=== PATIENT | male | born 1955 | race Caucasian/White ===

== ENCOUNTER 2021-02-06 15:15 | Emergency (ER) | payer MEDICARE, OTHER ==
[~2021-02-06] VITALS: Ht 182.9 cm; Wt 106.0 kg
--- NOTE | 2021-02-06 15:50 | EKG ---
[address] [address] Test Date: 2021-02-06 Test Time: 15:25:39 Pat Name: ALLISON DEE Department: Room: Gender: M Advertising Consultant: : 1955 Requested By: CHRISTOPHER NARANJO Order Number: [id number] Reading MD: Measurements Intervals [place] Rate: 75 P: 0 OR: 130 QRS: -26 QRSD: 92 T: -1 QT: 394 QTc: 443 Interpretive Statements SINUS RHYTHM LEFTWARD AXIS OTHERWISE NORMAL ECG RI6.02 No previous ECG available for comparison
--- NOTE | 2021-02-06 15:58 | PHYS DOC ---
Past History Additional Past Medical Histor: BPV (CHRISTOPHER NARANJO APRN) Past Surgical History: Other Additional Past Surgical Histo: Hernia repair (CHRISTOPHER NARANJO APRN) Alcohol Use: None (CHRISTOPHER NARANJO APRN) General Adult EDM: Chief Complaint: CHEST PAIN HPI: HPI: Patient is a 65-year-old male who presents to the ER today for left-sided chest pain that radiates into his shoulder and neck notes started this morning. He reports that last night he had some diaphoresis and dizziness but attributed that to his BPV, he did not have chest pain at the time. He describes the chest pain as a stabbing pain. He rates it 5 out of 10. No alleviating or aggravating factors. Patient is reporting intermittent shortness of breath, nausea, and has a chronic cough. Patient has a history of diabetes. He has a family history of heart disease. He does not smoke. Patient's vital signs are stable and he is in no acute distress. (CHRISTOPHER NARANJO APRN) Review of Systems: Review of Systems: 14 body systems of the review of systems have been reviewed. See HPI for pertinent positive and negative responses, otherwise all other systems are negat kaushik, nonpertinent or noncontributory (CHRISTOPHER NARANJO APRN) Physical Exam: PE: Constitutional: Well developed, well nourished, no acute distress, non-toxic appearance. [] HENT: Normocephalic, atraumatic, bilateral external ears normal, oropharynx moist, no oral exudates, nose normal. [] Eyes: PERRL, EOMI, conjunctiva normal, no discharge. [] Neck: Normal range of motion, no stridor Cardiovascular:Heart rate regular rhythm, no murmur, chest pain not reproducible [] Lungs & Thorax: Bilateral breath sounds clear to auscultation [] Abdomen: Bowel sounds normal, soft, no tenderness, no masses, no pulsatile masses. [] Skin: Warm, dry, no erythema, no rash. [] Back: Normal range of motion Extremities: No tenderness, no cyanosis, no clubbing, ROM intact, no edema. [] Neurologic: Alert and oriented X 3, normal motor function, normal sensory function, no focal deficits noted. [] Psychologic: Affect normal, judgement normal, mood normal. [] (CHRITSOPHER NARANJO APRN) Current Patient Data: Labs: Laboratory Tests Test 02/06/21 15:19 02/06/21 15:45 02/06/21 18:53 Sodium Level 139 mmol/L Potassium Level 4.2 mmol/L Chloride Level 103 mmol/L Carbon Dioxide Level 26 mmol/L Anion Gap 10 Blood Urea Nitrogen 18 mg/dL Creatinine 1.1 mg/dL Estimated GFR (Cockcroft-Gault) 67.0 BUN/Creatinine Ratio 16 Glucose Level 289 mg/dL Calcium Level 9.0 mg/dL Total Bilirubin 0.4 mg/dL Aspartate Amino Transf (AST/SGOT) 14 U/L Alanine Aminotransferase (ALT/SGPT) 27 U/L Alkaline Phosphatase 83 U/L Total Protein 6.6 g/dL Albumin 3.7 g/dL Albumin/Globulin Ratio 1.3 White Blood Count 7.4 x10^3/uL Red Blood Count 4.80 x10^6/uL Hemoglobin 14.1 g/dL Hematocrit 41.3 % Mean Corpuscular Volume 86 fL Mean Corpuscular Hemoglobin 29 pg Mean Corpuscular Hemoglobin Concent 34 g/dL Red Cell Distribution Width 13.3 % Platelet Count 163 x10^3/uL Neutrophils (%) (Auto) 72 % Lymphocytes (%) (Auto) 19 % Monocytes (%) (Auto) 8 % Eosinophils (%) (Auto) 2 % Basophils (%) (Auto) 1 % Neutrophils # (Auto) 5.3 x10^3uL Lymphocytes # (Auto) 1.4 x10^3/uL Monocytes # (Auto) 0.6 x10^3/uL Eosinophils # (Auto) 0.1 x10^3/uL Basophils # (Auto) 0.0 x10^3/uL Troponin I Quantitative < 0.017 ng/mL < 0.017 ng/mL Current Medications Medications (Trade) Dose Ordered Sig/Meagan Route PRN Reason Start Time Stop Time Status Last Admin Dose Admin Aspirin (Aspirin Chewable) 324 mg 1X ONCE PO 02/06/21 16:00 02/06/21 16:04 DC 02/06/21 16:52 Vital Signs: Vital Signs Date Time Temp Pulse Resp B/P (MAP) Pulse Ox O2 Delivery O2 Flow Rate FiO2 02/06/21 15:24 98.4 77 24 133/76 (95) 95 (CHRISTOPHER NARANJO APRN) EKG: EKG: EKG performed by ER staff at 1525 shows sinus rhythm, no STEMI or ischemic changes read by Dr. Smith at 1536. [] Repeat EKG performed at 1558 shows sinus rhythm, no change from previous EKG read by Dr. Smith 1558. (CHRISTOPHER NARANJO APRN) Radiology/Procedures: Radiology/Procedures: PROCEDURE: CHEST AP ONLY AP chest. HISTORY: Chest pain AP view was taken of the chest. Lungs are clear. Heart is normal in size. There is no pleural effusion. IMPRESSION: 1. No acute chest disease. Electronically signed by: Mesfin Smith MD (02/06/2021 4:48 PM) [id number] DICTATED AND SIGNED BY: MESFIN SMITH MD DATE: 02/06/211646 CC: EMERGENCY,DEPARTMENT; CHRISTOPHER NARANJO APRN; DUYEN DASH MD ~MTH0 0 [] (CHRISTOPHER NARANJO APRN) Heart Score: C/O Chest Pain: Yes HEART Score for Chest Pain: HEART Score for Chest Pain Response (Comments) Value History Slighlty/Non-Suspicious (strenuous exercise and heavy lifting yesterday) 0 ECG Normal 0 Age > 65 2 Risk Factors 1 or 2 Risk Factors (Diabetes and family history of heart disease) 1 Troponin < Normal Limit 0 Total 3 Risk Factors: Risk Factors: DM, Current or recent (<one month) smoker, HTN, HLP, family history of CAD, obesity. Risk Scores: Score 0 - 3: 2.5% MACE over next 6 weeks - Discharge Home Score 4 - 6: 20.3% MACE over next 6 weeks - Admit for Clinical Observation Score 7 - 10: 72.7% MACE over next 6 weeks - Early Invasive Strategies (CHRISTOPHER NARANJO APRN) Course & Med Decision Making: Course & Med Decision Making Pertinent Labs and Imaging studies reviewed. (See chart for details) Patient is a 65-year-old male being seen in the ER for left-sided chest pain that radiates to his shoulder that started this am at 0700. Work-up in the ER consisted of blood work, EKG, chest x-ray. Lab work is unremarkable. EKG is negative for any acute findings. Chest x-ray negative for any acute findings. Due to patient's heart score of 4 I would like a repeat troponin in 3 hours. Patient states that he is feeling much better. He states that he does not want to be admitted overnight. Patient divulged that he had been clearing brush last night prior to his symptoms starting and he states that he was pushing a mower for prolonged period and thinks that that may have caused his chest pain. Patient's repeat troponin after 3 hours was negative. I discussed possible admission with patient due to his history. Patient states that he would like to go home. Patient has a follow-up appointment with his primary care provider on the of this month. I discussed following up with his primary care provider as he may need further testing. I discussed with patient all findings and diagnostic testing as well as the need to follow-up with PCP for further evaluation and treatment or return to the ER if any new or worsening symptoms. Strict return precautions were also discussed at length. Patient voiced understanding and agreement with the plan. Patient is hemodynamically stable at the time of disposition. (CHRISTOPHER NARANJO APRN) Course & Med Decision Making Did not see or evaluate patient. Did not discuss patient with TAVERN CAR ATTENDANT. Agree with TAVERN CAR ATTENDANT's work-up and disposition per note. (JENNIE KINCAID MD) Dragon Disclaimer: Dragon Disclaimer: This electronic medical record was generated, in whole or in part, using a voice recognition dictation system. (CHRISTOPHER NARANJO APRN) Departure Departure: Impression: Primary Impression: Chest pain Qualified Codes: R07.9 - Chest pain, unspecified Disposition: HOME / SELF CARE / HOMELESS Condition: GOOD Referrals: DUYEN DASH MD (PCP) Patient Instructions: Chest Pain (Nonspecific) Additional Instructions: You were seen in the ER today for chest pain. Your physical exam was reassuring. Your vital signs were stable. As we discussed, at this time you are not having acute coronary syndrome. We discussed possible admission for cardiac observation but you declined. Please follow-up with your primary care provider on Tuesday regarding your ER visit. Rest and increase your fluids. If you develop chest pain, shortness of breath, lightheadedness, diaphoresis, intractable nausea or vomiting, high fevers refractory to treatment please return to the ER immediately. EMERGENCY DEPARTMENT GENERAL DISCHARGE INSTRUCTIONS Thank you for coming to [facility] (ED) today and trusting us with you care. We trust that you had a positivie experience in our Emergency Department. If you wish to speak to the department management, you may call the director at [phone]. YOUR FOLLOW UP INSTRUCTIONS ARE FOLLOWS: 1. Do you have a private Doctor? If you do not have a private doctor, please ask for a resource list of physicians or clinics that may be able to assist you with follow up care. 2. The Emergency Physician has interpreted your x-rays. The X-Ray specialist will also review them. If there is a change in the findings, you will be notified in 48 hours when at all possible. 3. A lab test or culture has been done, your results will be reviewed and you will be notified if you need a change in treatment. ADDITIONAL INSTRUCTIONS AND INFORMATION: 1. Your care today has been supervised by a physician who is specially trained in emergency care. Many problems require more than one evaluation for a complete diagnosis and treatment. We recommend that you schedule your follow up appointment as recommended to ensure complete treatment of you illness or injury. If you are unable to obtain follow up care and continue to have a problem, or if your condition worsens, we recommend that you return to the ED. 2. We are not able to safely determine your condition over the phone nor are we able to give sound medical advice over the phone. For these safety reasons, if you call for medical advice we will ask you to come to the ED for further evaluation. 3. If you have any questions regarding these discharge instructions please call the ED at [phone]. SAFETY INFORMATION: In the interest of safety, wellness, and injury prevention; we encourage you to wear your sealbelt, if you smoke; quite smoking, and we encourage family to use a protective helmet for bicycling and other sporting events that present an increased risk for head injury. IF YOUR SYMPTOMS WORSEN OR NEW SYMPTOMS DEVELOP, OR YOU HAVE CONCERNS ABOUT YOUR CONDITION; OR IF YOUR CONDITION WORSENS WHILE YOU ARE WAITING FOR YOUR FOLLOW UP APPOINTMENT; EITHER CONTACT YOUR PRIMARY CARE DOCTOR, THE PHYSICIAN WHOSE NAME AND NUMBER YOU WERE GIVEN, OR RETURN TO THE ED IMMEDIATELY. CHRISTOPHER NARANJO APRN Feb 06, 2021 15:58 JENNIE KINCAID MD Feb 06, 2021 20:28
[2021-02-06] MEDS ORDERED: ASPIRIN CHEWABLE 81 MG TABLET. PO ONE (16:00)
--- NOTE | 2021-02-06 16:07 | EKG ---
[address] [address] Test Date: 2021-02-06 Test Time: 15:58:16 Pat Name: ALLISON DEE Department: Room: Gender: M Analysis Engineer: : 1955 Requested By: CHRISTOPHER NARANJO Order Number: [id number] Reading MD: Measurements Intervals [place] Rate: 76 P: 180 [place]: 130 QRS: -24 QRSD: 92 T: -3 QT: 386 QTc: 439 Interpretive Statements SINUS RHYTHM LEFTWARD AXIS OTHERWISE NORMAL ECG RI6.02 No previous ECG available for comparison
[2021-02-06 16:12] LABS: BASO % 1 % (0-3); EOS # 0.1 x10^3/uL (0.0-0.7); EOS % 2 % (0-3); HEMATOCRIT 41.3 % (39.0-53.0); HEMOGLOBIN 14.1 g/dL (13.0-17.5); LYMPH # 1.4 x10^3/uL (1.0-4.8); LYMPH % 19 % (24-48); MEAN CORPUSCULAR HEMOGLOBIN 29 pg (25-35); MEAN CORPUSCULAR HGB CONC 34 g/dL (31-37); MEAN CORPUSCULAR VOLUME 86 fL (79-100); MONO # 0.6 x10^3/uL (0.0-1.1); MONO % 8 % (0-9); NEUT # 5.3 x10^3uL (1.8-7.7); NEUT % 72 % (31-73); PLATELET COUNT 163 x10^3/uL (140-400); RED CELL DISTRIBUTION WIDTH 13.3 % (11.5-14.5); WHITE BLOOD COUNT 7.4 x10^3/uL (4.0-11.0)
[2021-02-06 16:21] LABS: CREATININE 1.1 mg/dL (0.7-1.3); POTASSIUM 4.2 mmol/L (3.5-5.1)
[2021-02-06 16:27] LABS: ALBUMIN 3.7 g/dL (3.4-5.0); ALBUMIN/GLOBULIN RATIO 1.3 (1.0-1.7); TOTAL BILIRUBIN 0.4 mg/dL (0.2-1.0); TOTAL PROTEIN 6.6 g/dL (6.4-8.2)
--- NOTE | 2021-02-06 16:50 | RAD ---
AP chest. HISTORY: Chest pain AP view was taken of the chest. Lungs are clear. Heart is normal in size. There is no pleural effusio n. IMPRESSION: 1. No acute chest disease. Electronically signed by: Mesfin Smith MD (02/06/2021 4:48 PM) [id number]
[2021-02-06 19:54] VITALS: BP 112/69
== END 2021-02-06 19:55 | disposition home or self-care (01) ==
LOC: ER 15:15
DX: R07.89 Other chest pain (principal)
CPT/HCPCS: 36415; 71045; 80053; 84484; 85025; 93005; 99285

== ENCOUNTER → 2021-02-26 | Outpatient (CLI) | payer MEDICARE, OTHER ==
[2021-02-06 19:54] VITALS: BP 112/69
--- NOTE | 2021-02-26 10:10 | RAD ---
EXAM: 3 Views Left Shoulder DATE: 02/26/2021 9:15 AM INDICATION: Reason: Left Shoulder Pain / Spl. Instructions: / History: COMPARISON: No Prior FINDINGS: There is no evidence for acute fracture or dislocation. AC joint is congruent. Small a.c. and glenohu meral joint osteophytes are seen. Humeral head is not high riding. Patchy opacities left greater than right lung base. IMPRESSION: 1. No acute fracture or dislocation. 2. Patchy bibasilar opacities likely atelectasis or developing consolidation. Electronically signed by: Darell Sosa MD (02/26/2021 10:07 AM) [id number]
== END ==
LOC: RAD 09:03
PROVIDERS: ATTEND Orthopaedic Surgery
DX: M25.712 Osteophyte, left shoulder (principal); M25.512 Pain in left shoulder
CPT/HCPCS: 73030

== ENCOUNTER 2021-09-28 08:38 | Emergency (ER) | payer MEDICARE, OTHER ==
[~2021-09-28] VITALS: Ht 182.9 cm; Wt 106.0 kg
--- NOTE | 2021-09-28 09:24 | PHYS DOC ---
Past History Additional Past Medical Histor: BPV Past Surgical History: Other Additional Past Surgical Histo: Hernia repair Alcohol Use: None General Adult EDM: Chief Complaint: CHEST PAIN HPI: HPI: Patient is a 66-year-old male coming in for 1 week of lightheadedness that is worse with standing up or sitting up, dry cough, and chest heaviness. Patient states that he has had the chest heaviness for a couple weeks constantly but it has gone away this morning, and is complaining of crampy lateral left pain is worse with palpation and taking a deep breath. Patient also states that he had a sharp pain in his left lateral chest around his ribs. That pain is not present currently. Patient also reports fatigue and decreased energy for the past month. Review of Systems: Review of Systems: All other systems within normal limits except for as noted in the HPI Allergies: Allergies: Allergies Coded Allergies Type Severity Reaction Last Updated Verified No Known Drug Allergies 02/06/21 No Physical Exam: PE: Constitutional: Well developed, well nourished, no acute distress, non-toxic ap pearance. [] HENT: Normocephalic, atraumatic, bilateral external ears normal, nose normal. [] Eyes: PERRLA, conjunctiva normal, no discharge. [] Neck: No rigidity, supple, no stridor. [] Cardiovascular: Regular rate and rhythm, brisk cap refill [] Lungs & Thorax: Non labored symmetric respirations, no tachypnea or respiratory distress [] Abdomen: Soft, nondistended. Skin: Warm, dry, no erythema, no rash. [] Back: Unremarkable Extremities: No deformities, range of motion grossly intact, no lower extremity edema [] Neurologic: Alert and oriented X 3, no focal deficits noted. [] Psychologic: Affect normal, judgement normal, mood normal. [] Current Patient Data: Vital Signs: Vital Signs Date Time Temp Pulse Resp B/P (MAP) Pulse Ox O2 Delivery O2 Flow Rate FiO2 09/28/21 08:48 83 22 134/78 (96) Room Air EKG: EKG: Sinus rhythm, heart rate 83 bpm, left axis deviation, no STEMI [] Radiology/Procedures: Radiology/Procedures: [address] [address] IMAGING REPORT Signed PATIENT: ALLISON DEE ACCOUNT: [id number] : 1955 LOCATION: ER AGE: 66 SEX: M EXAM STATUS: REG ER ORD. PHYSICIAN: JOSE JOHNSON MD REASON: chest pain PROCEDURE: PORTABLE CHEST 1V EXAM: CHEST 1 VIEW History: Chest pain COMPARISON: None available. TECHNIQUE: Single portable radiograph of the chest FINDINGS: The cardiac silhouette is unremarkable. The lungs are clear bilaterally. The costophrenic sulci are clear and well demarcated. IMPRESSION: No radiographic evidence of an acute cardiopulmonary process. Electronically signed by: Isidro Rudd MD (09/28/2021 9:23 AM) [id number] DICTATED AND SIGNED BY: ISIDRO RUDD MD DATE: 09/28/21920 CC: JOSE JOHNSON MD; DUYEN DASH MD ~ [] Heart Score: C/O Chest Pain: Yes HEART Score for Chest Pain: HEART Score for Chest Pain Response (Comments) Value History Slighlty/Non-Suspicious 0 ECG Normal 0 Age > 65 2 Risk Factors 1 or 2 Risk Factors 1 Troponin < Normal Limit 0 Total 3 Risk Factors: Risk Factors: DM, Current or recent (<one month) smoker, HTN, HLP, family history of CAD, obesity. Risk Scores: Score 0 - 3: 2.5% MACE over next 6 weeks - Discharge Home Score 4 - 6: 20.3% MACE over next 6 weeks - Admit for Clinical Observation Score 7 - 10: 72.7% MACE over next 6 weeks - Early Invasive Strategies Course & Med Decision Making: Course & Med Decision Making Pertinent Labs and Imaging studies reviewed. (See chart for details) Work-up unremarkable. Patient with vague complaints but unremarkable work-up. Advised to follow-up with primary care for further outpatient evaluation. No emergent pathology identified in the emergency department. [] Dragon Disclaimer: Dragon Disclaimer: This electronic medical record was generated, in whole or in part, using a voice recognition dictation system. Departure Departure: Impression: Primary Impression: Chest pain Disposition: HOME / SELF CARE / HOMELESS Condition: STABLE Referrals: DUYEN DASH MD (PCP) Patient Instructions: Chest Contusion, [id number] JOSE JOHNSON MD September 28, 2021 09:24
[2021-09-28 09:35] LABS: BASO % 0 % (0-3); EOS # 0.1 x10^3/uL (0.0-0.7); EOS % 2 % (0-3); HEMATOCRIT 45.3 % (39.0-53.0); HEMOGLOBIN 15.3 g/dL (13.0-17.5); LYMPH # 1.6 x10^3/uL (1.0-4.8); LYMPH % 23 % (24-48); MEAN CORPUSCULAR HEMOGLOBIN 29 pg (25-35); MEAN CORPUSCULAR HGB CONC 34 g/dL (31-37); MEAN CORPUSCULAR VOLUME 86 fL (79-100); MONO # 0.5 x10^3/uL (0.0-1.1); MONO % 7 % (0-9); NEUT # 4.7 x10^3uL (1.8-7.7); NEUT % 68 % (31-73); PLATELET COUNT 167 x10^3/uL (140-400); RED BLOOD COUNT 5.25 x10^6/uL (4.30-5.70); RED CELL DISTRIBUTION WIDTH 13.5 % (11.5-14.5)
[2021-09-28 09:36] LABS: CREATININE 1.1 mg/dL (0.7-1.3); GFR 66.8; POTASSIUM 4.2 mmol/L (3.5-5.1)
[2021-09-28 09:49] LABS: ALBUMIN 3.8 g/dL (3.4-5.0); ALBUMIN/GLOBULIN RATIO 1.3 (1.0-1.7); MAGNESIUM 2.1 mg/dL (1.8-2.4); PHOSPHORUS 3.6 mg/dL (2.6-4.7); TOTAL BILIRUBIN 0.6 mg/dL (0.2-1.0); TOTAL PROTEIN 6.7 g/dL (6.4-8.2)
[2021-09-28] MEDS ORDERED: IV NORMAL SALINE 1,000ML 1,000 ML IV ONE (12:00)
[2021-09-28 12:20] LABS: BACTERIA,URINE 0 /HPF (0-FEW); CLARITY,URINE CLEAR; COLOR,URINE YELLOW; GLUCOSE,URINE >=1000 mg/dL (NEG); NITRITE,URINE NEG (NEG); RBC,URINE 0 /HPF (0-2); UROBILINOGEN,URINE 0.2 mg/dL (0.2 mg/dL); WBC,URINE 0 /HPF (0-4)
[2021-09-28 13:06] VITALS: BP 126/75
--- NOTE | 2021-09-28 19:12 | EKG ---
[address] [address] Test Date: 2021-09-28 Test Time: 08:47:57 Pat Name: ALLISON DEE Department: Room: Gender: M Night Shift Supervisor: : 1955 Requested By: JOSE JOHNSON Order Number: [id number] Reading MD: Jason Angulo Measurements Intervals [place] Rate: 85 P: 32 [place]: 166 QRS: -32 QRSD: 92 T: 39 QT: 372 QTc: 448 Interpretive Statements SINUS RHYTHM ATRIAL PREMATURE COMPLEX(ES) ABNORMAL LEFT AXIS DEVIATION LEFT ANTERIOR FASCICULAR BLOCK Electronically Signed On 09-30-2021 17:18:56 CDT by Jason Angulo
== END 2021-09-28 13:16 | disposition home or self-care (01) ==
LOC: ER 08:38
DX: R07.89 Other chest pain (principal); R42 Dizziness and giddiness; R05.9 Cough, unspecified
CPT/HCPCS: 36415; 71045; 80053; 81001; 83735; 83880; 84100; 84484; 85025; 85379; 85610; 93005; 96360; 99285; J7030